=== PATIENT | male | born 1950 | race African-American/Black ===

== ENCOUNTER 2022-03-15 18:42 | Observation (INO) ==
[2022-03-15 21:05] LABS: Basophils % 0.2 % (0.0-0.8); Eosinophils # 0.1 10*3/uL (0.0-0.87); Eosinophils % 1.7 % (0.00-10.9); Hemoglobin 13.9 GM/DL (14.0-18.0); Immature Granulocytes % 0.2 %; Immature Granulocytes Absolute 0.01 #; Lymphocytes # 1.7 10*3/uL (1.4-4.0); Lymphocytes % 32.3 % (21.2-54.2); Mean Corpuscular HGB Conc 34.8 GM/DL (32-36); Mean Corpuscular Volume 94.8 FL (87-102); Mean Platelet Volume 11.9 FL (9.6-12.0); Monocytes # 0.4 10*3/uL (0.11-0.8); Monocytes % 7.3 % (1.7-12.7); Neutrophils % 58.3 % (38.7-73.9); Platelet Count 108 T/CUMM (130-400); Red Blood Count 4.22 MC/CUMM (3.8-5.5); Red Cell Distribution Width 12.9 % (9.3-17.3); White Blood Count 5.2 T/CUMM (4-12)
[2022-03-15 21:29] LABS: Albumin 4.2 G/DL (3.4-5.0); Bilirubin,Total 0.9 MG/DL (0.20-1.00); Calcium 10.2 MG/DL (8.5-10.1); Osmolality,Calculated 279.5 MOS/KG (273-304); Potassium 3.1 MMOL/L (3.5-5.1); Total Protein 8.5 G/DL (6.4-8.2)
[2022-03-15 21:37] LABS: Platelet Estimate Decreased
[2022-03-15] MEDS ORDERED: PANTOPRAZOLE 40 MG VIAL IV STA (23:22)
[2022-03-15] MEDS ORDERED: ACETAMINOPHEN 325 MG TABLET PO PRN (23:59)
[2022-03-15] MEDS ORDERED: GLUCAGON 1 MG VIAL IM PRN (23:59)
[2022-03-15] MEDS ORDERED: ONDANSETRON 4 MG/2 ML VIAL IV PRN (23:59)
[2022-03-16] MEDS ORDERED: DEXTROSE 10% 250 ML BAG IV PRN (00:09)
[2022-03-16] MEDS ORDERED: POTASSIUM CHLORIDE 20 MEQ TABLET PO ONE (01:12)
[2022-03-16 05:27] LABS: Osmolality,Calculated 274.7 MOS/KG (273-304); Potassium 3.3 MMOL/L (3.5-5.1)
[2022-03-16 06:54] LABS: Basophils % 0.4 % (0.0-0.8); Eosinophils # 0.2 10*3/uL (0.0-0.87); Hematocrit 37.5 VOL% (42.0-52.0); Hemoglobin 13.1 GM/DL (14.0-18.0); Immature Granulocytes % 0.2 %; Immature Granulocytes Absolute 0.01 #; Lymphocytes # 1.9 10*3/uL (1.4-4.0); Lymphocytes % 41.9 % (21.2-54.2); Mean Corpuscular HGB Conc 34.9 GM/DL (32-36); Mean Corpuscular Volume 93.8 FL (87-102); Mean Platelet Volume 12.2 FL (9.6-12.0); Monocytes # 0.4 10*3/uL (0.11-0.8); Monocytes % 7.8 % (1.7-12.7); Neutrophils % 45.7 % (38.7-73.9); Platelet Count 96 T/CUMM (130-400); White Blood Count 4.5 T/CUMM (4-12)
[2022-03-16] MEDS ORDERED: POLYETHYLENE GLYCOL POWDER 17 GM PACK PO SCH (09:00)
[2022-03-16] MEDS: BISACODYL 5 MG TABLET PO SCH ×2 (10:36→16:22)
[2022-03-16] MEDS: PANTOPRAZOLE 40 MG TABLET PO SCH (10:36)
[2022-03-16] MEDS ORDERED: POLYETHYLENE GLYCOL POWDER 255 GM BOTTLE PO ONE (18:00)
[2022-03-17] MEDS: BISACODYL 5 MG TABLET PO SCH (00:35)
[2022-03-17] MEDS: LACTATED RINGERS 1,000 ML IV SCH ×3 (07:21→10:11)
[2022-03-17] MEDS ORDERED: POTASSIUM CHLORIDE RIDER 10 MEQ/100 ML PREMIX IV SCH (07:30)
[2022-03-17 07:34] LABS: Basophils % 0.5 % (0.0-0.8); Eosinophils # 0.2 10*3/uL (0.0-0.87); Eosinophils % 5.6 % (0.00-10.9); Hematocrit 40.6 VOL% (42.0-52.0); Hemoglobin 14.3 GM/DL (14.0-18.0); Immature Granulocytes % 0.2 %; Immature Granulocytes Absolute 0.01 #; Lymphocytes # 1.6 10*3/uL (1.4-4.0); Lymphocytes % 38.1 % (21.2-54.2); Mean Corpuscular HGB Conc 35.2 GM/DL (32-36); Mean Corpuscular Volume 93.5 FL (87-102); Mean Platelet Volume 12.2 FL (9.6-12.0); Monocytes # 0.3 10*3/uL (0.11-0.8); Monocytes % 7.7 % (1.7-12.7); Neutrophils % 47.9 % (38.7-73.9); Platelet Count 106 T/CUMM (130-400); Red Blood Count 4.34 MC/CUMM (3.8-5.5); White Blood Count 4.3 T/CUMM (4-12)
[2022-03-17 07:43] LABS: Calcium 10.3 MG/DL (8.5-10.1); Osmolality,Calculated 270.1 MOS/KG (273-304); Potassium 2.8 MMOL/L (3.5-5.1)
[2022-03-17] MEDS ORDERED: VERAPAMIL SR 120 MG TABLET PO SCH (09:00)
[2022-03-17] MEDS ORDERED: LORATADINE 10 MG TABLET PO SCH (09:00)
[2022-03-17] MEDS ORDERED: AMITRIPTYLINE 25 MG TABLET PO SCH (09:00)
[2022-03-17] MEDS ORDERED: propofoL 200 MG/20 ML VIAL IV ONE ×2 (09:18→09:36)
[2022-03-17] MEDS ORDERED: LIDOCAINE 2% 5 ML VIAL ONE (09:18)
[2022-03-17] MEDS: PANTOPRAZOLE 40 MG TABLET PO SCH (10:31)
[2022-03-17 15:36] VITALS: BP 130/81
[2022-03-17] MEDS ORDERED: POTASSIUM CHLORIDE 20 MEQ TABLET PO ONE (15:53)
[2022-03-17] MEDS ORDERED: ATORVASTATIN 10 MG TABLET PO SCH (17:00)
[2022-03-17] MEDS ORDERED: MONTELUKAST 10 MG TABLET PO SCH (21:00)
== END 2022-03-17 17:18 | disposition home or self-care (01) ==
LOC: N.TELES 18:42 → N.ED 18:42 → N.TELES 03-16 03:03 → SUATTDRO 03-16 07:49
PROVIDERS: ADMIT Internal Medicine; ATTEND Internal Medicine